=== PATIENT | female | born 1960 | race Caucasian/White ===

== ENCOUNTER 2021-01-19 06:17 | Day surgery (SDC) | payer MEDICARE ==
[~2021-01-19 06:17] MED LIST: Lactated Ringers 1,000 ML IV SCH
--- NOTE | 2021-01-19 07:30 | PCM.PREANE ---
Preanesthetic Assessment - Anesthesia/Transfusion/Family Hx Anesthesia History: Prior Anesthesia Without Reaction Other Type of Anesthesia Reaction Comment: Denies any known problem with anesthesia in the past. Family History of Anesthesia Reaction: No Transfusion History: No Prior Transfusion(s) - Review of Systems General: No Symptoms Pulmonary: No Symptoms Cardiovascular: No Symptoms Gastrointestinal: No Symptoms Neurological: No Symptoms Other: Reports: None - Physical Assessment NPO Status Date: 01/19/21 NPO Status Time: 00:01 Vital Signs: Last Vital Signs Temp 97.9 F 01/19/21 06:46 Pulse 86 01/19/21 06:46 Resp 16 01/19/21 06:46 BP 133/85 01/19/21 06:46 Pulse Ox 97 01/19/21 06:46 Height: 5 ft 6 in Weight: 232 lb ASA Class: 3 Mental Status: Alert & Oriented x3 Airway Class: Mallampati = 2 Dentition: Reports: Normal Dentition, Dentures ROM/Head Extension: Limited/Partial Lungs: Clear to Auscultation, Normal Respiratory Effort Cardiovascular: Regular Rate, Regular Rhythm - Lab Values: Laboratory Last Values SARS-CoV-2 RNA ([facility]IANA) NEGATIVE (NEGATIVE) 01/19/21 06:00 - Allergies Allergies/Adverse Reactions: Allergies Allergy/AdvReac Type Severity Reaction Status Date / Time No Known Allergies Allergy Verified 01/19/21 06:53 - Anesthesia Plan Pre-Op Medication Ordered: None - Acknowledgements Anesthesia Type Planned: General Anesthesia Pt an Appropriate Candidate for the Planned Anesthesia: Yes Alternatives and Risks of Anesthesia Discussed w Pt/Guardian: Yes Pt/Guardian Understands and Agrees with Anesthesia Plan: Yes Additional Comments: npo after mn htn HI 2016 L Breast CA 2013 with XRT Colon CA 2015 s/p XRT DVT and 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 last Xarelto last obesity bmi 37 depression copd daily inhalers perfusion scan recently fixed defect no reversable nl lv function par no questions tob 1/2 ppd etoh none PreAnesthesia Questionnaire HEENT History: Reports: Other (See Below) Other HEENT History: has upper and lower dentures Cardiovascular History: Reports: Blood Clots/VTE/DVT, High Cholesterol, Hypertension, HI Other Cardiovascular History: hx of HI in 2016- denies chest pain and SOB, hx of right lower leg DVT x2 Respiratory History: Reports: COPD Other Respiratory History: denies COPD, states she just gets SOB occasionally Gastrointestinal History: Reports: Other (See Below) Other Gastrointestinal History: hx of dysphagia Genitourinary History: Reports: None NEGATIVE CHECKER History: Reports: None Musculoskeletal History: Reports: Fracture, Neck Pain, Chronic Other Musculoskeletal History: recently diagnosed with degenerative disc disease in neck, hx of fx arm Neurological History: Reports: CVA Other Neuro History: hx of CVA- no residual Psychiatric History: Reports: Anxiety Endocrine/Metabolic History: Reports: Hypothyroidism, Obesity/BMI 30+ Other Endocrine/Metabolic History: diet controlled type II diabetes Hematologic History: Reports: Anticoagulation Therapy Immunologic History: Reports: None Oncologic (Cancer) History: Reports: Breast, Colon, Malignant Melanoma Other Oncologic History: hx skin cancer to arm and back Dermatologic History: Reports: None - Infectious Disease History Infectious Disease History: Reports: None - Past Surgical History Head Surgeries/Procedures: Reports: None HEENT Surgical History: Reports: None Cardiovascular Surgical History: Reports: Vascular Surgery Other Cardiovascular Surgeries/Procedures: removal of blood clot from right leg Respiratory Surgical History: Reports: None GI Surgical History: Reports: Colon Other GI Surgeries/Procedures: hx of laparoscopic partial colectomy Female Surgical History: Reports: Breast Biopsy, Hysterectomy Other Female Surgeries/Procedures: hx bladder sling, breast lumpectomy Endocrine Surgical History: Reports: None Neurological Surgical History: Reports: None Musculoskeletal Surgical History: Reports: None Oncologic Surgical History: Reports: None Other Oncologic Surgeries/Procedures: Hysterectomy, colon resection, breast lumpectomy followed by radiation, melanoma resected from arm Dermatological Surgical History: Reports: Skin Biopsy - SUBSTANCE USE Tobacco Use Status *Q: Current Every Day Tobacco User Tobacco Use Within Last Twelve Months: Cigarettes Recreational Drug Use History: No - HOME MEDS Home Medications: Home Meds Albuterol Sulfate [Proair Hfa] 2 puff INH QID PRN 11/08/18 [History] Lisinopril 20 mg PO DAILY 11/08/18 [History] Rivaroxaban [Xarelto] 10 mg PO DAILY 11/08/18 [History] Spironolactone [Aldactone] 12.5 mg PO DAILY 11/08/18 [History] atorvaSTATin Calcium [Atorvastatin Calcium] 80 mg PO DAILY 11/08/18 [History] Budesonide/Formoterol Fumarate [Symbicort 80-4.5 MCG] 2 puff INH BID 08/19/20 [History] Cyclobenzaprine HCl 5 - 10 mg PO BEDTIME PRN 08/19/20 [History] Levothyroxine Sodium [Synthroid] 25 mcg PO QAM 08/19/20 [History] Venlafaxine HCl [Venlafaxine ER] 75 mg PO DAILY 08/19/20 [History] - CURRENT (IN HOUSE) MEDS Current Meds: Current Medications Lactated Ringer's (Ringers, Lactated) 1,000 mls @ 125 mls/hr IV ASDIRECTED [facility] Last Admin: 01/19/21 06:52 Dose: 125 mls/hr Documented by:
[2021-01-19] MEDS ORDERED: Propofol 200 MG/20 ML SDV ONE (07:31)
[2021-01-19] MEDS ORDERED: Lidocaine 2% 5 ML SDV ONE (07:31)
[2021-01-19] MEDS ORDERED: Benzocaine 20% Topical Spray UD ONE (07:32)
--- NOTE | 2021-01-19 08:29 | PCM.OPNOTE ---
- General Post-Op/Procedure Note Date of Surgery/Procedure: 01/19/21 Operative Procedure(s): Esophagogastroduodenoscopy with gastric and distal esophageal biopsy Pre Op Diagnosis: Dysphagia. Post-Op Diagnosis: Chronic gastritis. Hiatal hernia with mild esophagitis. Anesthesia Technique: MAC (ASA III) Primary Surgeon: Juvencio Plaza Condition: Good Free Text/Narrative:: DICTATION [id number] CPT CODE [id number]
[2021-01-19] MEDS ORDERED: Lactated Ringers 1,000 ML IV SCH (08:30)
--- NOTE | 2021-01-19 08:41 | PCM.POSTAN ---
POST ANESTHESIA ASSESSMENT - MENTAL STATUS Mental Status: Alert (no anesthetic problems), Oriented - VITAL SIGNS Vital Signs: Last Vital Signs Temp 97.3 F 01/19/21 08:12 Pulse 96 01/19/21 08:12 Resp 14 01/19/21 08:12 BP 118/67 01/19/21 08:12 Pulse Ox 93 L 01/19/21 08:12 - RESPIRATORY Respiratory Status: Respiratory Rate WNL, Airway Patent, O2 Saturation Stable - CARDIOVASCULAR CV Status: Pulse Rate WNL, Blood Pressure Stable - GASTROINTESTINAL GI Status: No Symptoms - POST OP HYDRATION Hydration Status: Adequate & Stable
--- NOTE | 2021-01-19 08:41 | PCM48HPAN ---
Post Anesthesia Note - EVALUATION WITHIN 48HRS OF ANESTHETIC Vital Signs in Normal Range: Yes Patient Participated in Evaluation: Yes Respiratory Function Stable: Yes Airway Patent: Yes Cardiovascular Function Stable: Yes Hydration Status Stable: Yes Pain Control Satisfactory: Yes Nausea and Vomiting Control Satisfactory: Yes Mental Status Recovered: Yes Vital Signs: Last Vital Signs Temp 97.3 F 01/19/21 08:12 Pulse 96 01/19/21 08:12 Resp 14 01/19/21 08:12 BP 118/67 01/19/21 08:12 Pulse Ox 93 L 01/19/21 08:12
--- NOTE | 2021-01-19 10:06 | OR ---
SURGEON: Juvencio Plaza M.D. DATE OF PROCEDURE: 01/19/2021 OPERATION PERFORMED: Esophagogastroduodenoscopy with gastric and esophageal biopsies. PRIMARY SURGEON: Juvencio Plaza M.D. ANESTHESIA: MAC. ASA CLASSIFICATION: III. PREOPERATIVE DIAGNOSIS: Dysphagia. POSTOPERATIVE DIAGNOSES: 1. Mild to moderate gastritis. 2. Small hiatal hernia with esophagitis. DESCRIPTION OF PROCEDURE: The patient was taken to the endoscopy room and positioned on the endoscopy table in the supine position. Time-out was called for appropriate identification of the patient and procedure. Monitored anesthesia care was provided. The bite block was placed between the patient's teeth. The gastroscope was inserted through the bite block into the oropharynx and advanced without difficulty through the esophagus and stomach into the duodenum. The duodenum showed no acute inflammatory changes or ulcerations. No blood was seen in the upper GI tract. The gastroscope was withdrawn to the stomach, which did show [id number] gastritis. Small amount of food was present in the stomach. No acute ulcerations were noted. Antral biopsies were obtained to look for the presence of Helicobacter pylori. The gastroscope was retroflexed to visualize the proximal stomach. Again, a small amount of retained food could be seen. No ulcers again are noted. There was a small hiatal hernia that could be visualized from below. The cardia shows no acute ulcerations or polyps. The gastroscope was then straightened and slowly withdrawn. GE junction was visualized and shows some [id number] inflammatory changes. Again, a small hiatal hernia was noted. The esophagus itself demonstrated good contractility. No mid or proximal lesions were identified. The patient was coughing quite hard due to her history of smoking, and the vocal cords were not visualized. The gastroscope was then removed with the patient having tolerated the procedure well. She was taken to recovery room in stable condition. JAC / KIRAN /[id number]
== END 2021-01-19 08:50 | disposition home or self-care (01) ==
LOC: MW.SDS 06:17
PROVIDERS: ATTEND Surgery
DX: K29.00 Acute gastritis without bleeding (principal); K29.50 Unspecified chronic gastritis without bleeding; K44.9 Diaphragmatic hernia without obstruction or gangrene; K20.90 Esophagitis, unspecified without bleeding; J44.9 Chronic obstructive pulmonary disease, unspecified; E78.5 Hyperlipidemia, unspecified; I10 Essential (primary) hypertension; E03.9 Hypothyroidism, unspecified; E11.9 Type 2 diabetes mellitus without complications; F17.210 Nicotine dependence, cigarettes, uncomplicated; I25.2 Old myocardial infarction; E78.00 Pure hypercholesterolemia, unspecified; E66.9 Obesity, unspecified; Z68.37 Body mass index [BMI] 37.0-37.9, adult; Z01.812 Encounter for preprocedural laboratory examination; Z20.822 Contact with and (suspected) exposure to COVID-19; Z79.899 Other long term (current) drug therapy; Z79.890 Hormone replacement therapy; Z86.010 Personal history of colon polyps; Z85.3 Personal history of malignant neoplasm of breast; Z85.038 Personal history of other malignant neoplasm of large intestine
CPT/HCPCS: 43239; 88305; 88312; A9270; J2704; J7120; U0002; 00731